=== PATIENT | male | born 1955 | race Caucasian/White ===

== ENCOUNTER 2018-11-08 10:49 | Emergency (ER) | payer MEDICAID ==
[~2018-11-08] VITALS: Ht 180.3 cm; Wt 79.5 kg
[2018-11-08] MEDS ORDERED: LISINOPRIL10 M1 PO (11:27)
[2018-11-08] MEDS ORDERED: CEPHALEXIN500 M1 PO (12:16)
[2018-11-08] MEDS ORDERED: BACTRIM DS1 TAB PO (12:16)
[2018-11-08] MEDS ORDERED: MOTRIN400 MG PO (12:16)
[2018-11-08 12:17] VITALS: BP 159/99
== END 2018-11-08 12:17 | disposition home or self-care (01) ==
LOC: ED 10:49
DX: L02.412 Cutaneous abscess of left axilla (principal); I10 Essential (primary) hypertension; F17.210 Nicotine dependence, cigarettes, uncomplicated; B95.62 Methicillin resistant Staphylococcus aureus infection as the cause of diseases classified elsewhere